=== PATIENT | male | born 1945 ===

== ENCOUNTER 2018-05-28 10:00 | Inpatient (IN) | payer MEDICARE, MEDICAID ==
[2018-05-28] VITALS (13 sets, daily range): BP systolic 115–175; BP diastolic 74–95
[~2018-05-28] VITALS: Ht 170.2 cm
[~2018-05-28 10:00] MED LIST: ceFAZolin sod 1 GM in D5W 55 ML IVPB ONE
[2018-05-28] MEDS ORDERED: ACETAMINOPHEN-1 EAC2 ORAL (11:35)
[2018-05-28] MEDS ORDERED: fentaNYL 100 mcg/2 mL IV ONE (11:42)
[2018-05-28] MEDS ORDERED: Midazolam 2mg/2ml Inj ONE (11:42)
[2018-05-28] MEDS ORDERED: Lidocaine 1% MPF 10mg/ml 5ml ONE (11:44)
[2018-05-28] MEDS ORDERED: Propofol 200mg/20ml IV ONE (11:44)
--- NOTE | 2018-05-28 12:14 | Pre-Procedure Note/Attestation ---
Pre-Procedure Note/Attestation Complete Prior to Procedure Planned Procedure: not applicable Procedure Narrative: TURP Indications for Procedure Pre-Operative Diagnosis: bph Attestation I attest that I discussed the nature of the procedure; its benefits; risks and complications; and alternatives (and the risks and benefits of such alternatives ), prior to the procedure, with the patient (or the patient's legal jewelry sales representative). I attest that, if there was a reasonable possibility of needing a blood transfusion, the patient (or the patient's legal jewelry sales representative) was given the [facility] standardized written summary, pursuant to the Rupesh Cecilton Blood Safety Act ([place] Health and Safety Code # 1645, as amended). I attest that I re-evaluated the patient just prior to the surgery and that there has been no change in the patient's H&P, except as documented below: Wagner Ramirez MD May 28, 2018 12:14
[2018-05-28] MEDS ORDERED: NS Irrig 1000ml ONE (12:30)
[2018-05-28] MEDS ORDERED: LR 1000ml ONE (12:30)
[2018-05-28] MEDS ORDERED: Sterile Water Irrig 1000ml IRRIG ONE (12:30)
[2018-05-28] MEDS ORDERED: NS Irrig 4000ml IRRIG ONE (12:30)
[2018-05-28] MEDS ORDERED: Zemuron 50mg/5ml Inj IV ONE (13:11)
[2018-05-28] MEDS ORDERED: LR 1000ml 1,000 ML IVLG SCH (13:39)
--- NOTE | 2018-05-28 13:39 | Anethesia Preoperative Eval ---
Anesthesia Pre-op PMH/ROS General Date of Evaluation: May 28, 2018 Time of Evaluation: 12:20 Anesthesiologist: Latosha ASA Score: ASA 3 Mallampati Score Class I : Soft palate, uvula, fauces, pillars visible Class II: Soft palate, uvula, fauces visible Class III: Soft palate, base of uvula visible Class IV: Only hard plate visible Mallampati Classification: Class III Surgeon: Ashley Diagnosis: BPH Surgical Procedure: TUPR Social History: current smoker, alcohol use - h/o abuse, drug use - IVDA long time ago Family History: no anesthesia problems Allergies: Coded Allergies: No Known Allergies (Unverified , 05/28/18) Past Medical History Cardiovascular: Reports: HTN; Denies: CAD, SC, valve dz, arrhythmia, other Pulmonary: Reports: COPD; Denies: asthma, PATRICK, other Gastrointestinal/Genitourinary: Reports: GERD, other - Hep C; Denies: CRI, ESRD Neurologic/Psychiatric: Denies: dementia, CVA, depression/anxiety, TIA, other Endocrine: Denies: DM, hypothyroidism, steroids, other HEENT: Denies: cataract (L), cataract (R), glaucoma, ATKA (L), ATKA (R), other Hematology/Immune: Reports: anemia - mild; Denies: DVT, bleeding disorder, other Musculoskeletal/Integumentary: Reports: DJD; Denies: OA, RA, DDD, edema, other PMH Narrative: as above PSxH Narrative: Appendectomy, recent back Sx, soft tissue mass Anesthesia Pre-op Phys. Exam Physician Exam Last Vital Signs Date Time Temp Pulse Resp B/P (MAP) Pulse Ox O2 Delivery O2 Flow Rate FiO2 05/28/18 11:39 Room Air 05/28/18 11:38 98.1 65 18 115/75 (88) 99 98.1 Constitutional: NAD Neurologic: CN 2-12 intact Cardiovascular: RRR, no M/R/G Respiratory: other - some wheezing bilaterally Gastrointestinal: S/NT/ND Airway Exam Mallampati Score: Class II MO: limited Neck: flexible Teeth: missing Dentures: upper, lower Anesthesia Pre-op A/P Labs see chart Studies Pre-op Studies: EKG - SR Risk Assessment & Plan Assessment: ASA 3 Plan: Ga with LMA vs ETT Status Change Before Surgery: No Pre-Antibiotics Drug: Ancef 1 gr. Given Within 1 Hr of Incision: Yes Time Given: 13:08 Yasir Reina MD May 28, 2018 13:39
[2018-05-28] MEDS ORDERED: DiphenhydrAMINE 50mg/ml Inj IVP PRN (13:45)
[2018-05-28] MEDS ORDERED: Morphine Sulfate 2mg/ml Inj(IV/IM USE ONLY) IVP PRN (13:45)
[2018-05-28] MEDS ORDERED: Glycopyrrolate 0.2mg/ml 1ml Vial ONE (13:46)
--- NOTE | 2018-05-28 14:26 | Immediate Post-Op Evaluation ---
Immediate Post-Op Evalulation Immediate Post-Op Evalulation Procedure: TURP Date of Evaluation: May 28, 2018 Time of Evaluation: 14:24 IV Fluids: 1200 Blood Products: none Estimated Blood Loss: 100 Urinary Output: n/a Blood Pressure Systolic: 146 Blood Pressure Diastolic: 89 Pulse Rate: 69 Respiratory Rate: 20 O2 Sat by Pulse Oximetry: 99 Temperature (Fahrenheit): 97.6 Pain Score (1-10): 2 Nausea: No Vomiting: No Complications none Patient Status: reacts, patent, extubated, none Hydration Status: adequate Yasir Reina MD May 28, 2018 14:26
[2018-05-28] MEDS: fentaNYL 100 mcg/2 mL IV PRN ×4 (14:34→15:41)
[2018-05-28] MEDS: Midazolam 2mg/2ml Inj IVP PRN ×2 (14:48→15:43)
[2018-05-28 16:35] LABS: EOSINOPHILS % (AUTO) 1.3 % (0.0-3.0); HEMATOCRIT 37.1 % (42.0-52.0); HEMOGLOBIN 12.1 G/DL (14.2-18.0); LYMPHOCYTES % (AUTO) 21.6 % (20.0-45.0); MEAN CORPUSCULAR VOLUME 86 FL (80-99); MONOCYTES % (AUTO) 9.6 % (1.0-10.0); NEUTROPHILS % (AUTO) 66.4 % (45.0-75.0); PLATELET COUNT 178 K/UL (150-450); RED CELL DISTRIBUTION WIDTH 12.9 % (11.6-14.8); WHITE BLOOD COUNT 6.7 K/UL (4.8-10.8)
[2018-05-28 17:04] LABS: ANION GAP 9 mmol/L (5-15); BLOOD UREA NITROGEN 11 mg/dL (7-18); CALCIUM 8.7 MG/DL (8.5-10.1); CARBON DIOXIDE 27 MMOL/L (21-32); CHLORIDE 106 MMOL/L (98-107); CREATININE 0.8 MG/DL (0.55-1.30); POTASSIUM 3.7 MMOL/L (3.5-5.1); SODIUM 142 MMOL/L (136-145)
[2018-05-28] MEDS: Docusate 100mg cap ORAL SCH (17:09)
[2018-05-28] MEDS: D5 1/2NS 1,000 ML IV SCH (17:09)
[2018-05-28] MEDS: Norco 5mg/325mg tab ORAL PRN (17:12)
[2018-05-28] MEDS ORDERED: HYDROmorphone 1mg/ml Carpuject IVP SCH (19:15)
[2018-05-28] MEDS: ceFAZolin sod 1 GM in D5W 110 ML IV SCH (20:23)
[2018-05-28] MEDS: TraZODone 50mg tab ORAL SCH (20:46)
[2018-05-29] MEDS: D5 1/2NS 1,000 ML IV SCH ×2 (00:31→11:10)
[2018-05-29 00:55] VITALS: BP 159/79
[2018-05-29] MEDS: ceFAZolin sod 1 GM in D5W 110 ML IV SCH ×2 (04:45→12:55)
[2018-05-29 04:56] VITALS: BP 152/76
[2018-05-29 07:01] LABS: BASOPHILS % (AUTO) 1.6 % (0.0-2.0); EOSINOPHILS % (AUTO) 0.5 % (0.0-3.0); HEMATOCRIT 37.4 % (42.0-52.0); HEMOGLOBIN 12.3 G/DL (14.2-18.0); MEAN CORPUSCULAR VOLUME 86 FL (80-99); MONOCYTES % (AUTO) 9.1 % (1.0-10.0); NEUTROPHILS % (AUTO) 67.9 % (45.0-75.0); PLATELET COUNT 200 K/UL (150-450); RED BLOOD COUNT 4.33 M/UL (4.70-6.10); RED CELL DISTRIBUTION WIDTH 12.8 % (11.6-14.8); WHITE BLOOD COUNT 8.3 K/UL (4.8-10.8)
[2018-05-29 07:10] LABS: ANION GAP 8 mmol/L (5-15); BLOOD UREA NITROGEN 6 mg/dL (7-18); CALCIUM 8.6 MG/DL (8.5-10.1); CARBON DIOXIDE 27 MMOL/L (21-32); CHLORIDE 106 MMOL/L (98-107); CREATININE 0.8 MG/DL (0.55-1.30); POTASSIUM 3.3 MMOL/L (3.5-5.1); SODIUM 141 MMOL/L (136-145)
--- NOTE | 2018-05-29 07:18 | 48 Hour Post Anesthesia Eval ---
Post Anesthesia Evaluation Procedure: TURP Date of Evaluation: May 29, 2018 Time of Evaluation: 07:16 Blood Pressure Systolic: 152 0: 78 Pulse Rate: 64 Respiratory Rate: 20 Temperature (Fahrenheit): 97.6 O2 Sat by Pulse Oximetry: 98 Airway: patent Nausea: No Vomiting: No Pain Intensity: 3 Hydration Status: adequate Cardiopulmonary Status: stable Mental Status/LOC: patient returned to baseline Follow-up Care/Observations: n/a Post-Anesthesia Complications: none Follow-up care needed: N/A Yasir Reina MD May 29, 2018 07:18
[2018-05-29] MEDS: Norco 5mg/325mg tab ORAL PRN ×4 (07:23→19:57)
[2018-05-29 08:00] VITALS: BP 138/85
[2018-05-29] MEDS: Docusate 100mg cap ORAL SCH ×2 (08:37→18:42)
[2018-05-29 12:00] VITALS: BP 126/79
[2018-05-29 16:00] VITALS: BP 145/75
[2018-05-29 20:00] VITALS: BP 154/88
[2018-05-29] MEDS: TraZODone 50mg tab ORAL SCH (20:51)
--- NOTE | 2018-05-29 23:45 | Operative Note - Dictated ---
PREOPERATIVE DIAGNOSIS: BPH. OPERATION: Transurethral resection of the prostate. POSTOPERATIVE DIAGNOSIS: Transurethral resection of the prostate. SHAFT TENDER: Wagner Ramirez M.D. ANESTHESIA: General. FINDINGS: Enlarged prostate. INDICATION FOR SURGERY: The patient obstructing voiding symptoms despite medical therapy. Treatment options were explained in great length including all potential complications, he signed the consent. He was brought to the operating room, placed in lithotomy position, prepped and draped in standard fashion. Under general anesthesia, resectoscope was introduced, prostate was mobilized and resected with bipolar TURP. All the chips were evacuated and using button electrode, the . The patient tolerated the procedure well. A 24 three-way Brown catheter was placed and CBI was started. Sponge count and instrument count was correct. Wagner Ramirez M.D. DR: CARLOS JOB#: [id number] CC:
[2018-05-30] VITALS: BP 121/58
--- NOTE | 2018-05-30 00:30 | History and Physical Report ---
DATE OF ADMISSION: 05/28/2018 INTERNAL MEDICINE HISTORY AND PHYSICAL HISTORY OF PRESENT ILLNESS: This is a 72-year-old male, who is postop day #1, status post TURP. At this time, he states he is feeling well. Denies new complaints. He has bladder irrigation and . PAST MEDICAL HISTORY: Notable for emphysema, history of hep C, cocaine dependence, alcohol dependence, chronic tobacco usage, hearing loss, diverticulosis, and lumbar disc disease. MEDICATIONS: His home medications include Tylenol with Codeine, Soma, Voltaren, Vistaril, and ProAir. ALLERGIES: None reported. FAMILY HISTORY: Notable for hypertension. REVIEW OF SYSTEMS: Denies any headaches, hematemesis, melena, hematochezia, night sweats, or weight loss. PHYSICAL EXAMINATION: VITAL SIGNS: Blood pressure is 130/70, heart rate is 84, respiratory rate 18, and he is afebrile. GENERAL: Reveals a 72-year-old male. HEENT: Unremarkable. LUNGS: Clear breath sounds bilaterally. ABDOMEN: Soft. EXTREMITIES: There is no edema. NEUROLOGIC: Nonfocal. Brown catheter is in place. LABORATORY DATA: Lab testing shows hemoglobin 12.3, white count is normal, and platelet count is normal. Creatinine this morning is 0.8. IMPRESSION: 1. Status post TURP. 2. Emphysema. 3. History of previous alcohol, tobacco, and cocaine use. DISCUSSION: Continue bladder irrigation. I will continue him on trazodone. Pain medications with [place], Colace, and IV fluids. He is also on Ancef. He is on a regular diet. Anticipate continue bladder irrigation today. Anticipate discharge home tomorrow with the catheter in place. We will continue to follow carefully. Discussed with Dr. Ramirez. Agusto Soria M.D. DR: VERA JOB#: [id number] CC:
[2018-05-30 04:00] VITALS: BP 132/69
[2018-05-30] MEDS: Norco 5mg/325mg tab ORAL PRN ×4 (05:20→21:41)
[2018-05-30 08:00] VITALS: BP 156/80
[2018-05-30] MEDS: Docusate 100mg cap ORAL SCH ×2 (08:28→18:09)
--- NOTE | 2018-05-30 10:48 | Pulmonology Progress Note ---
Assessment/Plan Assessment/Plan IMPRESSION: 1. Status post TURP. 2. Emphysema. 3. History of previous alcohol, tobacco, and cocaine use. DISCUSSION: Continue bladder irrigation. I will continue him on trazodone. Pain medications with [place], Colace, and IV fluids. He is also on Ancef. He is on a regular diet. Anticipate continue bladder irrigation today. Anticipate discharge home tomorrow with the catheter in place. I will continue to follow carefully. Discussed with Dr. Ramirez. Subjective Interval Events: states he is feeling well Bladder irrigation in progress; urine still pink Constitutional: Reports: no symptoms HEENT: Repors: no symptoms Respiratory: Reports: no symptoms Cardiovascular: Reports: no symptoms Gastrointestinal/Abdominal: Reports: no symptoms Allergies: Coded Allergies: No Known Allergies (Unverified , 05/28/18) Objective Last 24 Hour Vital Signs Date Time Temp Pulse Resp B/P (MAP) Pulse Ox O2 Delivery O2 Flow Rate FiO2 05/30/18 09:11 Room Air Room Air 05/30/18 08:00 98.9 72 20 156/80 (105) 99 98.9 05/30/18 04:00 98.5 76 18 132/69 (90) 100 98.5 05/30/18 00:00 97.7 73 18 121/58 (79) 98 97.7 05/29/18 21:00 Room Air Room Air 05/29/18 20:00 97.4 62 17 154/88 (110) 99 97.4 05/29/18 16:00 98.4 68 20 145/75 (98) 100 98.4 05/29/18 12:00 98.6 69 18 126/79 (95) 100 98.6 Intake and Output 05/29/18 05/30/18 19:00 07:00 Intake Total 1730 ml 300 ml Output Total 1100 ml 2200 ml Balance 630 ml -1900 ml Intake Oral 630 ml 300 ml IV Total 1100 ml Output Urine Total 1100 ml 2200 ml General Appearance: no acute distress HEENT: normocephalic Respiratory/Chest: chest wall non-tender, lungs clear Cardiovascular: normal peripheral pulses, normal rate Abdomen: normal bowel sounds Current Medications Medications (Trade) Dose Ordered Sig/Renan Route PRN Reason Start Time Stop Time Status Last Admin Dose Admin Acetaminophen/ Hydrocodone Bitart ([place] 5/325) 1 tab Q4H PRN ORAL Moderate Pain (Pain Scale 4-6) 05/28/18 16:46 06/04/18 16:45 05/30/18 10:03 Acetaminophen/ Hydrocodone Bitart ([place] 5/325) 2 tab Q4H PRN ORAL Severe Pain (Pain Scale 7-10) 05/28/18 16:46 06/04/18 16:45 05/29/18 19:57 Docusate Sodium (Colace) 100 mg TWICE A DAY ORAL 05/28/18 18:00 06/27/18 17:59 05/30/18 08:28 Phenazopyridine HCl (Pyridium) 100 mg BID ORAL 05/28/18 18:00 05/30/18 17:59 05/30/18 08:28 Trazodone HCl (Desyrel) 50 mg BEDTIME ORAL 05/28/18 21:00 06/27/18 20:59 05/29/18 20:51 Agusto Soria MD May 30, 2018 10:48
[2018-05-30 12:00] VITALS: BP 163/88
[2018-05-30 16:26] VITALS: BP 155/85
[2018-05-30 20:00] VITALS: BP 159/86
[2018-05-30] MEDS: TraZODone 50mg tab ORAL SCH (20:44)
[2018-05-31] VITALS: BP 146/72
[2018-05-31 04:00] VITALS: BP 132/84
[2018-05-31] MEDS: Norco 5mg/325mg tab ORAL PRN ×2 (05:48→09:58)
[2018-05-31 06:17] LABS: BASOPHILS % (AUTO) 1.2 % (0.0-2.0); EOSINOPHILS % (AUTO) 1.2 % (0.0-3.0); HEMATOCRIT 36.3 % (42.0-52.0); HEMOGLOBIN 12.4 G/DL (14.2-18.0); LYMPHOCYTES % (AUTO) 26.8 % (20.0-45.0); MEAN CORPUSCULAR VOLUME 86 FL (80-99); NEUTROPHILS % (AUTO) 60.9 % (45.0-75.0); PLATELET COUNT 216 K/UL (150-450); RED BLOOD COUNT 4.22 M/UL (4.70-6.10); RED CELL DISTRIBUTION WIDTH 12.5 % (11.6-14.8); WHITE BLOOD COUNT 7.6 K/UL (4.8-10.8)
[2018-05-31 06:51] LABS: ANION GAP 5 mmol/L (5-15); BLOOD UREA NITROGEN 10 mg/dL (7-18); CALCIUM 9.1 MG/DL (8.5-10.1); CARBON DIOXIDE 30 MMOL/L (21-32); CHLORIDE 105 MMOL/L (98-107); CREATININE 0.8 MG/DL (0.55-1.30); POTASSIUM 3.7 MMOL/L (3.5-5.1); SODIUM 140 MMOL/L (136-145)
[2018-05-31 07:59] VITALS: BP 154/90
[2018-05-31] MEDS: Docusate 100mg cap ORAL SCH (08:24)
--- NOTE | 2018-05-31 10:12 | Pulmonology Progress Note ---
Assessment/Plan Assessment/Plan IMPRESSION: 1. Status post TURP. 2. Emphysema. 3. History of previous alcohol, tobacco, and cocaine use. DISCUSSION: DC bladder irrigation. DC home on with [place], Colace, and Levaquin Attach leg bag Leave rdz in Subjective Interval Events: Doing well Constitutional: Reports: no symptoms HEENT: Repors: no symptoms Respiratory: Reports: no symptoms Cardiovascular: Reports: no symptoms Gastrointestinal/Abdominal: Reports: no symptoms Allergies: Coded Allergies: No Known Allergies (Unverified , 05/28/18) Objective Last 24 Hour Vital Signs Date Time Temp Pulse Resp B/P (MAP) Pulse Ox O2 Delivery O2 Flow Rate FiO2 05/31/18 08:04 Room Air Room Air 05/31/18 07:59 97.9 78 18 154/90 (111) 99 97.9 05/31/18 04:00 98.0 79 18 132/84 (100) 99 98.0 05/31/18 00:00 98.3 80 20 146/72 (96) 99 98.3 05/30/18 21:00 Room Air Room Air 05/30/18 20:00 98.4 73 21 159/86 (110) 100 98.4 05/30/18 16:26 98.2 70 18 155/85 (108) 99 98.2 05/30/18 12:00 98.0 69 21 163/88 (113) 99 98.0 Intake and Output 05/30/18 05/31/18 19:00 07:00 Intake Total 360 ml Output Total 700 ml 2150 ml Balance -340 ml -2150 ml Intake Oral 360 ml Output Urine Total 700 ml 2150 ml # Bowel Movements 2 General Appearance: no acute distress HEENT: normocephalic Respiratory/Chest: chest wall non-tender, lungs clear Cardiovascular: normal peripheral pulses, normal rate Abdomen: normal bowel sounds Microbiology Date/Time Source Procedure Growth Status 05/28/18 11:10 Nasal Nares MRSA Culture - Final NO METHICILLIN RESISTANT STAPH AUREUS... Complete Laboratory Tests 05/31/18 05:00: White Blood Count 7.6, Red Blood Count 4.22L, Hemoglobin 12.4L, Hematocrit 36.3L , Mean Corpuscular Volume 86, Mean Corpuscular Hemoglobin 29.2, Mean Corpuscular Hemoglobin Concent 34.0, Red Cell Distribution Width 12.5, Platelet Count 216, Mean Platelet Volume 7.5, Neutrophils (%) (Auto) 60.9, Lymphocytes (% ) (Auto) 26.8, Monocytes (%) (Auto) 10.0, Eosinophils (%) (Auto) 1.2, Basophils (%) (Auto) 1.2, Sodium Level 140, Potassium Level 3.7, Chloride Level 105, Carbon Dioxide Level 30, Anion Gap 5, Blood Urea Nitrogen 10, Creatinine 0.8, Estimat Glomerular Filtration Rate , Glucose Level 90, Calcium Level 9.1 Current Medications Medications (Trade) Dose Ordered Sig/Renan Route PRN Reason Start Time Stop Time Status Last Admin Dose Admin Acetaminophen/ Hydrocodone Bitart ([place] 5/325) 1 tab Q4H PRN ORAL Moderate Pain (Pain Scale 4-6) 05/28/18 16:46 06/04/18 16:45 05/30/18 17:12 Acetaminophen/ Hydrocodone Bitart ([place] 5/325) 2 tab Q4H PRN ORAL Severe Pain (Pain Scale 7-10) 05/28/18 16:46 06/04/18 16:45 05/31/18 09:58 Docusate Sodium (Colace) 100 mg TWICE A DAY ORAL 05/28/18 18:00 06/27/18 17:59 05/31/18 08:24 Trazodone HCl (Desyrel) 50 mg BEDTIME ORAL 05/28/18 21:00 06/27/18 20:59 05/30/18 20:44 Agusto Soria MD May 31, 2018 10:12
[2018-05-31] MEDS ORDERED: NORCO 5-325 TA1 EACH ORAL (10:19)
[2018-05-31] MEDS ORDERED: DOK100 M1 ORAL (10:19)
[2018-05-31] MEDS ORDERED: LEVAQUIN500 MG ORAL (10:19)
[2018-05-31] MEDS ORDERED: D5 1/2NS 1000ml IV ONE (10:39)
[2018-05-31 12:00] VITALS: BP 159/90
--- NOTE | 2018-06-03 13:42 | Discharge Summary ---
Discharge Summary Hospital Course Date of Admission May 28, 2018 at 10:52 Date of Discharge May 31, 2018 at 14:30 Admitting Diagnosis BPH Reason for Hospitalization: elective surgery KRISTYN Porras III is a 72 year old male who was admitted on May 28, 2018 at 10:52 for Enlarge Prostate & Incomplete Bladder Emptying. Patient was admitted for elective surgery. Consultations d Estella IM Procedures s/p 05/28/[address] Ramirez [facility] Course s/p surgery course of recovery uneventful initially IV fluids until tolerated diet continuous bladder irrigation via 3 way Brown catheter and manual irrigation prn incision clean, dry and intact pain management addressed, and pain was controlled empiric antibiotics started on diet and advanced as tolerated, antiemetics prn, able to tolerate diet, IVF dc ambulated freely fall precautions maintained afebrile, no leukocytosis stable renal parameters bowel regimen instituted urine output sufficient, without clots CBI discontinued supplemetnal O2 an d pulmonary toilet were on board, respiratory status stable , discharge instruction provided patient was instructed on Brown catheter care Brown converted to leg bag prescription provided ( abx, stool softener and analgesic) follow-up with surgeon as outpatient as advised patient was counseled to continue abstinence from illegal street drugs as well as continue abstinence from alcohol and smoking FINAL DIAGNOSES BPH s/p TURP emphysema hx of alcohol, tobacco and cocaine use Discharge Medications New Medications: Levofloxacin* (Levaquin*) 500 Mg Tablet 500 MG ORAL DAILY for 7 Days, TAB Docusate Sodium (Dok) 100 Mg Capsule 100 MG ORAL TWICE A DAY for 30 Days, CAP Hydrocodone Bit/Acetaminophen 5-325* ([place] 5-325*) 1 Each Tablet 1 TAB ORAL Q4H PRN, #40 TAB Discontinued Medications: Acetaminophen With Codeine (T#4) (Tylenol #4 Tab*) Y Tab 1 TAB ORAL Q6H PRN for For Pain, TAB 0 Refills Discharge Condition Upon Discharge: stable Discharge Disposition Patient was discharged to Home () Discharge Instructions Discharge Instructions Special Instructions I have been assigned to complete a D/C Summary on this account. I was not involved in the patient management Elli Mata NP Jun 03, 2018 13:42
== END 2018-05-31 14:30 | disposition home or self-care (01) | DRG 714 ==
LOC: SDSOVERFLO 10:52 → 3E 16:22
PROC: 0VB08ZZ Excision of Prostate, Via Natural or Artificial Opening Endoscopic (ICD-10-PCS; principal; 2018-05-28 12:45)
DX: N40.1 Benign prostatic hyperplasia with lower urinary tract symptoms (principal); R39.14 Feeling of incomplete bladder emptying; J43.9 Emphysema, unspecified; Z86.19 Personal history of other infectious and parasitic diseases; F10.11 Alcohol abuse, in remission; F14.21 Cocaine dependence, in remission; Z87.891 Personal history of nicotine dependence; K57.90 Diverticulosis of intestine, part unspecified, without perforation or abscess without bleeding; M51.36 Other intervertebral disc degeneration, lumbar region; I73.9 Peripheral vascular disease, unspecified; I10 Essential (primary) hypertension
CPT/HCPCS: 36415; 80048; 85025; 86850; 86900; 86901; 87081; 94003; 94150; J2250; J8499